=== PATIENT | female | born 2000 | race Caucasian/White ===

== ENCOUNTER 2021-12-20 16:39 | Outpatient (CLI) | payer OTHER, SELFPAY ==
[2021-12-20 22:06] LABS: Chloride* 105 mmol/L (96-114)
[2021-12-20 22:07] LABS: Albumin* 4.4 g/dL (3.3-5.0); Potassium* 4.8 mmol/L (3.6-5.1); Sodium* 138 mmol/L (135-149)
[2021-12-20 22:09] LABS: Creatinine* 0.7 mg/dL (0.5-1.5); Estimated Glomerular Filt Rate 126 ml/min
[2021-12-20 22:10] LABS: Alanine Aminotransferase* 21 U/L (4-35); Alkaline Phosphatase* 60 U/L (40-150); Aspartate Amino Transferase* 27 U/L (12-35); Bilirubin Total* 0.1 mg/dL (0.1-1.5); Blood Urea Nitrogen* 13 mg/dL (5-24); Carbon Dioxide* 25 mmol/L (20-32); Glucose* 99 mg/dL (60-115)
[2021-12-20 22:11] LABS: Calcium* 9.9 mg/dL (8.4-10.6)
[2021-12-20 22:13] LABS: C Reactive Protein* 1.2 mg/dL (0.5-1.0)
== END 2021-12-20 16:40 | disposition home or self-care (01) ==
PROVIDERS: Visit Provider Nurse Practitioner Family
DX: R53.83 Other fatigue (principal); M25.50 Pain in unspecified joint
CPT/HCPCS: 80053; 86039; 86140; 86618